=== PATIENT | female | born 1970 | race Caucasian/White ===

== ENCOUNTER 2016-11-22 14:43 | Emergency (ER) | payer BC ==
[~2016-11-22] VITALS: Ht 162.6 cm; Wt 97.0 kg
[2016-11-22 14:45] VITALS: Ht 162.6 cm; Wt 97.0 kg
[2016-11-22] MEDS ORDERED: NO ROUTINE MEDS (15:27)
[2016-11-22] MEDS ORDERED: ONDA8TAB12 PO (15:33)
--- NOTE | 2016-11-22 15:39 | ERPDOC ---
Departure Disposition Decision Date: Nov 22, 2016 Disposition Decision Time: 19:16 Disposition: 02 TO [facility] Impression Impression Impression: Primary Impression: Peritonitis (acute) generalized Severity: Moderate Condition: Stable Seen By: Mid-level only Problems/Meds/Labs Reviewed?: Yes Medications reviewed and manag: Yes Follow up care ordered?: Yes Mental Status: Alert HPI - Abdominal Pain General Chief Complaint: Female Urogenital Problems Stated Complaint: VAGINAL BLEEDING, POSS CYST Time Seen by Provider: 15:10 Source: patient History/Exam Limitations: no limitations HPI - Abdominal Pain Initial Comments She had some RLQ abdominal pain a few weeks ago. Was evaluated by her PCP and had a CT scan done that showed a ruptured ovarian cyst. She had improved from that pain. Five days ago she had return of the RLQ abdominal pain and then 4 days ago started vomiting quite a bit. The vomiting continued for 2 days until she saw her PCP in the office yesterday. Was given an IM injection of nausea medication and the nausea has subsided. She is still having the pain however. Denies any fever or chills. Had one episode of diarrhea. Today she also did use the restroom and noted some dark red blood on the pad she had on. She has had a small amount of bleeding. She does have her periods regularly and last one was the -03 of November. She is noted to be very tender with light palpation. Occurred At: home Onset: Gradual Duration: 1 week Quality: sharpness Location: RLQ Radiation: no radiation Activities at Onset: none Associated Symptoms: nausea/vomiting, DENIES: back pain, chest pain, diaphoresis, fatigue, fever/chills, headache, heartburn, rash, shortness of breath, swelling/mass in abdomen, syncope, weakness Hx of Similar Symptoms: Yes Allergies: Coded Allergies: No Known Drug Allergies (Verified Allergy, Mild, 11/22/16) Past History Past Medical History Female: other (ovarian cysts) Surgical History Denies Surgeries Family History Family History: Negative Social History Smoking Status: Never smoker Substance Use Type: does not use Alcohol Intake: none Review of Systems Constitutional Constitutional: appetite decrease, DENIES: chills, dizziness, fatigue, fever, weakness Cardiovascular Cardiac: DENIES: chest pain, orthopnea Rhythm/Rate: DENIES: irregular beat, palpitations Vascular: DENIES: pedal edema, unilateral swelling Pulmonary Respiratory: DENIES: cough, dyspnea, sputum, tachypnea GI Upper Abdomen: nausea, vomiting, DENIES: pain Lower Abdomen: pain, DENIES: constipation, diarrhea General: DENIES: dysuria, frequency, hematuria, urgency Integumentary Skin: DENIES: rash Neurological General: DENIES: headache, numbness, tingling, weakness Physical Exam General General Nourishment: well nourished, well developed, appears stated age, no acute distress, adult General Body Habitus: well groomed Vitals and Pain First Documented Vital Signs Date Time Temp Pulse Resp B/P Pulse Ox O2 Delivery O2 Flow Rate FiO2 11/22/16 14:45 98.1 138 22 176/100 97 Room Air Weight: Kilograms: 97.000 Height (feet): 5 Height (inches): 4.00 Triage Pain Scale: RN VS reviewed by Provider: Yes Normal Exams: Neck: Full range of motion, without adenopathy, JVD, bruits or thyromegaly Chest/Resp: Clear all anne, with good airflow, and symmetry bilaterally CV: Regular rate and rhythm, without murmur or gallop, Pulses 2+ all extremities, capillary refill, <2 seconds all ext., no pedal edema noted Lymphatic: No lymphadenopathy, or lymphedema noted Integumentary: No rashes, hives, or bruising noted Neurologic: Patient is alert, and oriented Psychiatric: Patient exhibits, appropriate attention, emotion and affect Abdomen (brief) Abdominal Brief: FOUND: bowel normo active x4 Abdomen Inspection: NOT FOUND: distention Palpation: FOUND: soft, tender (Very TTP in all quadrants but to even light palpation with the stethoscope in the right upper and lower abdomen), voluntary guarding, NOT FOUND: rebound Auscultation: FOUND: normoactive Differential Diagnoses Considering: Appendicitis, Bowel Obstruction, Diverticulitis, Hernia, Ovarian Cyst, Other (ruptured bowel) Progress Results/Orders Orders Procedure Category Date Status Time LAB 11/22/16 Complete Qualitative, Serum 15:35 Cbc W/Auto LAB 11/22/16 Complete Diff-Reflex Manual Cmp - Comprehensive LAB 11/22/16 Complete Metabolic Lipase LAB 11/22/16 Complete Iv Lock (Ed Only) EDM 11/22/16 Transmitted 15:35 Ua, Dip Wreflex LAB 11/22/16 Logged Microsc & Admitted Attorneys 15:35 Normal Saline (Normal PHA 11/22/16 Complete Saline Iv) 15:45 Ondansetron Inj PHA 11/22/16 Complete (Zofran) 15:45 Morphine Sulfate PHA 11/22/16 Complete (Morphine) 15:45 Ct Abd/Pelvis CT 11/22/16 Taken W/Contrast Only 16:00 Blood Culture ANGELES 11/22/16 In Process 16:00 Lactate - Lactic Acid LAB 11/22/16 Complete Lactate - Lactic Acid LAB 11/22/16 Logged 20:30 Procalcitonin LAB 11/22/16 Complete 16:00 Piperacillin/Tazobactam PHA 11/22/16 In Process (Zosyn) 21:00 Iohexol (Omnipaque) PHA 11/22/16 Complete 16:51 Normal Saline (Ns) PHA 11/22/16 Complete 16:51 Saline Flush (Iv PHA 11/22/16 Complete Flush) 16:51 Hydromorphone PHA 11/22/16 Complete (Dilaudid) 17:00 Lab Results Laboratory Tests Test 11/22/16 15:15 11/22/16 16:14 White Blood Count 31.0T/MM3 Red Blood Count 4.55M/MM3 Hemoglobin 13.1GM/DL Hematocrit 38.9% Mean Corpuscular Volume 85.5UM3 Mean Corpuscular Hemoglobin 28.8UUG Mean Corpuscular Hemoglobin Concent 33.7GM/DL RDW Standard Deviation 39.4FL Platelet Count 532T/MM3 Mean Platelet Volume 9.9UM3 Immature Granulocyte % (Auto) % Neutrophils (%) (Auto) % Lymphocytes (%) (Auto) % Monocytes (%) (Auto) % Eosinophils (%) (Auto) % Basophils (%) (Auto) % Absolute Immature Granulocyte (auto T/MM3 Absolute Neutrophils (auto) T/MM3 Absolute Lymphocytes (auto) T/MM3 Absolute Monocytes (auto) T/MM3 Absolute Eosinophils (auto) T/MM3 Absolute Basophils (auto) T/MM3 Neutrophils % (Manual) 74.0% Band Neutrophils % 17.0% Lymphocytes % (Manual) 1.0% Reactive Lymphocytes % 3.0% Monocytes % (Manual) 4.0% Metamyelocytes % 1.0% Myelocytes % % Absolute Neutrophils (Manual) 22.9T/MM3 Band Neutrophils # 5.3T/MM3 Lymphocytes # (Manual) 0.3T/MM3 Reactive Lymphocytes # 0.9T/MM3 Monocytes # (Manual) 1.2T/MM3 Metamyelocytes # 0.3T/MM3 Myelocytes # 0.0T/MM3 Red Cell Morphology Comment Normal Turbidity < 20 Sodium Level 138MEQ/L Potassium Level 4.0MEQ/L Chloride Level 98MEQ/L Carbon Dioxide Level 22MEQ/L Anion Gap 18MEQ/L Blood Urea Nitrogen 19.0MG/DL Creatinine 0.7MG/DL Glomerular Filtration Rate Calc 90 BUN/Creatinine Ratio 27RATIO Glucose Level 131MG/DL Calculated Osmolality 270MOSM/KG Calcium Level 8.6MG/DL Total Bilirubin 0.90MG/DL Icterus Index < 2 Aspartate Amino Transf (AST/SGOT) 18U/L Alanine Aminotransferase (ALT/SGPT) 32U/L Alkaline Phosphatase 130U/L Total Protein 6.3G/DL Albumin 3.0G/DL Globulin 3.3G/DL Albumin/Globulin Ratio 0.9RATIO Lipase 22U/L Human Chorionic Gonadotropin, Qual Negative Chemistry Specimen Hemolysis 17 Plasma Lactate 1.0MMOL/L Procalcitonin 0.33NG/ML Medications Current ED Medications Sodium Chloride (Normal Saline IV) 1,000 ml @ 1,000 mls/hr Q1H ONCE IV Last administered on 11/22/16 15:50; Start 11/22/16 at 15:45; Stop 11/22/16 at 16:44; Status DC Ondansetron HCl (Zofran) 4 mg O ONCE IV Last administered on 11/22/16 15:51; Start 11/22/16 at 15:45; Stop 11/22/16 at 15:46; Status DC Morphine Sulfate 4 mg 4 mg O ONCE IV Last administered on 11/22/16 15:53; Start 11/22/16 at 15:45; Stop 11/22/16 at 15:46; Status DC Piperacillin Sod/ Tazobactam Sod/ Sodium Chloride (Zosyn/NS) 100 ml @ 200 mls/ hr Q6HR IV Last administered on 11/22/16 16:26; Start 11/22/16 at 21:00 Iohexol 1 bottle 1 bottle STK-MED ONCE .ROUTE ; Start 11/22/16 at 16:51; Stop 11/22/16 at 16:52; Status DC Sodium Chloride (NS) 100 ml @ As Directed STK-MED ONCE .ROUTE ; Start 11/22/16 at 16:51; Stop 11/22/16 at 16:52; Status DC Sodium Chloride (Iv Flush) 10 ml STK-MED ONCE .ROUTE ; Start 11/22/16 at 16:51; Stop 11/22/16 at 16:52; Status DC Hydromorphone HCl (Dilaudid) 0.5 mg O ONCE IV Last administered on 11/22/16t 16 :57; Start 11/22/16 at 17:00; Stop 11/22/16 at 17:01; Status DC Progress Progress WBC today is 31 with 74 neutrophils and 17% bands. CMP and lipase are normal. Lactate is 1.0 and procalcitonin is within normal limits. CT scan does show several multilobar loculated lesions in the abdomen with possibly ruptured diverticulitis or appendicitis. One liter of NS is infused she does remain tachycardic at 116 but blood pressure is stable at 133 systolic. Afebrile. Discussed findings with Dr Staley today. He states that given the multiple abscesses she will likely need interventional radiological procedure to have these drained which we do not have available here. Recommends transfer to [place] for treatment of this. Called and spoke with Dr Guerin at [facility] and he will accept for admission to SICU at this time. We have given Zosyn IV x1 in ER with blood cultures pending. CT CT : Reason for Exam: abdominal pain CT: Abd/Pelvis IV contrast Interpretation: Abnormal (multiple loculated lesions in the abdomen with possible perforated diverticulitis or appendicitis) BESSIE DEAN APRN Nov 22, 2016 15:39
[2016-11-22] MEDS ORDERED: MORPHINE SULFATE 4 MG SYRINGE IV ONE (15:45)
[2016-11-22] MEDS ORDERED: ONDANSETRON 4mg/2ml INJECTION IV ONE (15:45)
[2016-11-22] MEDS ORDERED: NORMAL SALINE 1,000 ML IV ONE (15:45)
[2016-11-22 15:58] LABS: HCT - HEMATOCRIT 38.9 % (36-46); HGB - HEMOGLOBIN 13.1 GM/DL (12-16); MEAN CORPUSCULAR HGB 28.8 UUG (26-34); MEAN CORPUSCULAR HGB CONC(MCHC 33.7 GM/DL (31-37); MEAN CORPUSCULAR VOLUME 85.5 UM3 (80-100); MEAN PLATELET VOLUME 9.9 UM3 (9.4-12.4); RED BLOOD COUNT 4.55 M/MM3 (4.00-5.20)
[2016-11-22 16:05] LABS: ALBUMIN/GLOBULIN RATIO 0.9 RATIO (1.1-2.2); ALKALINE PHOSPHATASE 130 U/L (38-126); ALT (SGPT) 32 U/L (9-52); ANION GAP 18 MEQ/L (5-15); AST (SGOT) 18 U/L (14-36); BUN/CREATININE RATIO 27 RATIO (6-26); CALCIUM 8.6 MG/DL (8.4-10.2); CHLORIDE 98 MEQ/L (98-107); CO2 - CARBON DIOXIDE 22 MEQ/L (22-30); CREATININE 0.7 MG/DL (0.7-1.2); GLOMERULAR FILTRATION RATE 90; GLUCOSE 131 MG/DL (65-110); LIPASE 22 U/L (23-300); SODIUM 138 MEQ/L (134-144); TOTAL PROTEIN 6.3 G/DL (6.3-8.2)
[2016-11-22 16:10] LABS: BAND NEUTROPHILS # 5.3 T/MM3; LYMPHOCYTES # (MANUAL) 0.3 T/MM3 (1-4.8); METAMYELOCYTES # 0.3 T/MM3; MONOCYTES # (MANUAL) 1.2 T/MM3 (0-0.8); NEUTROPHILS #(MANUAL)-ABSOLUTE 22.9 T/MM3 (1.8-7.7); REACTIVE LYMPHOCYTES # 0.9 T/MM3 (0-0); TOTAL CELLS COUNTED 100 %
[2016-11-22] MEDS ORDERED: SALINE FLUSH 10ml SYRINGE ONE (16:51)
[2016-11-22] MEDS ORDERED: IOHEXOL 300 MG/ML 75ml INJECTION ONE (16:51)
[2016-11-22] MEDS ORDERED: NORMAL SALINE 100 ML ONE (16:51)
--- NOTE | 2016-11-22 16:59 | NUR ---
CT PATIENT TO RADIOLOGY PER CART FOR CT, STABLE.
[2016-11-22] MEDS ORDERED: HYDROMORPHONE 2mg/ml INJECTION IV ONE (17:00)
--- NOTE | 2016-11-22 17:35 | NUR ---
UPDATE PATIENT LYING IN BED, PATIENT REPORTS PAIN IS AT ACCEPTABLE LEVEL AT THIS TIME. DENIES NEED FOR MORE PAIN MEDICATIONS AT THIS TIME.
--- NOTE | 2016-11-22 18:19 | NUR ---
UPDATE PATIENT LYING IN BED, PATIENT CONTINUE TO HAVE PAIN AT ACCEPTABLE LEVEL, DENIES NEEDS AT THIS TIME.
--- NOTE | 2016-11-22 18:21 | NUR ---
PROVIDER N NOLD COUNTER CLERK AT BEDSIDE TO DISCUSS POC
--- NOTE | 2016-11-22 19:33 | NUR ---
REPORT REPORT GIVEN TO SCOTT WILSON AT [facility]
--- NOTE | 2016-11-22 19:34 | NUR ---
[facility] CALLED FOR TRANSPORT
--- NOTE | 2016-11-22 19:39 | NUR ---
ACTIVITY PATIENT AMBULATORY TO RESTROOM, TOLERATES ACTIVITY FAIR.
[2016-11-22 19:45] VITALS: BP 127/69; PULSE 116; RESP 17; TEMP 98.1; O2SAT 92
--- NOTE | 2016-11-22 19:45 | NUR ---
REPORT REPORT GIVEN TO EMS CREW, PATIENT DC'D TO [facility], STABLE.
[2016-11-22] MEDS ORDERED: PIPERACILLIN/TAZOBACTAM 3.375 G in NORMAL SALINE 100 ML IV SCH (21:00)
--- NOTE | 2016-11-23 09:10 | DI ---
Indication: ITS.REASON: RLQ abdominal Pain PROCEDURE: CT ABD/PELVIS W/CONTRAST ONLY: Encounter: Initial Comparison: None Technique: Axial CT images were performed through the abdomen and pelvis after the administration of intravenous contrast. Coronal and sagittal two-dimensional reformats. Automated Exposure Control and Iterative Reconstruction dose reducing techniques were utilized. Contrast: Omnipaque 300 100 mL Findings: Atelectasis in the lung bases, right greater than left. The liver, gallbladder, spleen, pancreas and adrenal glands are within normal limits. Retroaortic left renal vein noted incidentally. No abdominal or pelvic adenopathy. Significant inflammatory changes in the mesentery of the pelvis. There are enhancing multilocular cystic structures in both adnexal region suspicious for tubo-ovarian abscesses which measure between 5.5 and 6 cm in diameter. There is adjacent inflammation extending into the mesentery causing a partial small bowel obstruction with fluid-filled dilated small bowel loops measuring up to 3.5 cm in diameter. There is transition in the pelvis to decompressed distal ileum. There is reactive wall thickening within multiple small bowel loops and within the sigmoid colon. No free intraperitoneal air identified. There is inflammation surrounding the tip of the appendix as well. There is a fluid collection seen on top of the bladder between the bladder and the uterus measuring 6.9 x 3.8 x 4.8 cm in size suspicious for abscess. There are additional smaller fluid collection seen along the bilateral paracolic gutters suspicious for small areas of abscess. Intrauterine device is present within the uterus. Metallic artifact from right femoral hardware. Bone windows show bilateral L5 spondylolysis with grade 2 spondylolisthesis of L5 on S1. Impression: 1. Significant inflammation predominantly within the pelvis with areas of abscess. The findings are suggestive of a severe tubo-ovarian abscess and pelvic inflammatory disease. Other differential considerations include perforated appendicitis or diverticulitis with pelvic abscess formation. I do not see any obvious diverticular disease however. Recommend emergent surgical and gynecologic consultation. 2. Inflammatory process is causing a significant focal ileus or moderate partial small bowel obstruction. There is a preliminary report by [facility]. .
== END 2016-11-22 19:45 | disposition short-term general hospital (02) ==
LOC: ED 14:43
DX: K65.0 Generalized (acute) peritonitis (principal)
CPT/HCPCS: 36415; 74177; 80053; 83605; 83690; 84145; 84703; 85025; 87040; 96361; 96365; 96375; 99285; J1170; J2405; J2543; J7030; J7050; Q9967